=== PATIENT | male | born 1975 | race Caucasian/White ===

== ENCOUNTER 2018-11-05 22:28 | Emergency (ER) | payer BC ==
[~2018-11-05] VITALS: Ht 180.3 cm; Wt 93.2 kg
[2018-11-05] MEDS ORDERED: ADV500INH INH (22:34)
[2018-11-05] MEDS ORDERED: PROAAER10 INH (22:34)
[2018-11-06 02:31] VITALS: BP 147/102
--- NOTE | 2018-11-06 03:26 | REPVR ---
EXAM: US Duplex Left Lower Extremity Veins, Limited EXAM DATE/TIME: 11/06/2018 1:39 AM CLINICAL HISTORY: 43 years old, male; Pain; Foot; Left; Pain/swelling TECHNIQUE: Imaging protocol: Real-time Duplex ultrasound of the Left Lower Extremity with 2-D perez scale, color Doppler flow and spectral waveform analysis. Limited exam focused on the left lower extremity veins. COMPARISON: No relevant prior studies available. FINDINGS: Left deep veins: Unremarkable. The common femoral, femoral, proximal profunda femoral and popliteal veins are patent without thrombus. Normal Doppler waveforms. Normal compressibility and/or augmentation response. Left superficial veins: Unremarkable. Saphenofemoral junction is patent without thrombus. Soft tissues: Unremarkable. IMPRESSION: No sonographic evidence of left lower extremity DVT. Electronically signed by: Tristian Cordero On 11/06/2018 03:26:13 AM
--- NOTE | 2018-11-06 08:17 | REP ---
Left ankle: Four views. History: Pain and swelling. Findings: Four views of the left ankle demonstrate plantar and small Achilles calcaneal spurring. Ankle mortise is intact. No fracture is seen. Lateral view shows a small spur at the anterior articular margin of the distal tibia. Question ankle joint effusion. Impression: No fracture seen. Question ankle joint effusion. Distal tibial spurring and heel spurs. Electronically Signed by Femi Kearney MD 11/06/2018 03:49 P
== END 2018-11-06 02:32 | disposition home or self-care (01) ==
LOC: M ED 22:28
DX: M25.572 Pain in left ankle and joints of left foot (principal); R73.03 Prediabetes; J45.909 Unspecified asthma, uncomplicated; M19.90 Unspecified osteoarthritis, unspecified site; M25.772 Osteophyte, left ankle; M77.32 Calcaneal spur, left foot; Z79.899 Other long term (current) drug therapy; Z88.0 Allergy status to penicillin